=== PATIENT | male | born 1970 | race Caucasian/White ===

== ENCOUNTER 2021-04-04 11:15 | Inpatient (IN) | payer OTHER ==
[~2021-04-04] VITALS: Ht 175.3 cm; Wt 83.9 kg
[2021-04-04] MEDS ORDERED: VITAMIN D310 MCG/1 M PO (16:23)
[2021-04-04] MEDS ORDERED: VITAMIN C PO (16:23)
[2021-04-04] MEDS ORDERED: PROBIOTIC1 EAC2 PO (16:24)
[2021-04-11] MEDS ORDERED: VITAMIN C1000 MG (16:21)
[2021-04-15] MEDS ORDERED: HYOSCYAMINE0.125 M1 SL (10:42)
[2021-04-15] MEDS ORDERED: ULTRACET PO (10:42)
[2021-04-15] MEDS ORDERED: PANTOPRAZOLE SO40 MG PO (10:43)
[2021-04-15] MEDS ORDERED: DICLOFENAC SODI75 MG PO (10:43)
== END 2021-04-15 14:23 | disposition home or self-care (01) | DRG 334 ==
LOC: SURH 04-11 07:00 → O/R 04-11 07:37 → SURH 04-11 11:15
PROVIDERS: ADMIT Surgery; ATTEND Surgery
PROC: 0DBP4ZZ Excision of Rectum, Percutaneous Endoscopic Approach (ICD-10-PCS; principal; 2021-04-11 07:00)
PROC: 3E0F7SF Introduction of Other Gas into Respiratory Tract, Via Natural or Artificial Opening (ICD-10-PCS; principal; 2021-04-11 07:00)
DX: D12.2 Benign neoplasm of ascending colon (principal); D12.8 Benign neoplasm of rectum; E80.4 Gilbert syndrome; D12.3 Benign neoplasm of transverse colon

== ENCOUNTER 2021-04-09 08:52 | Day surgery (SDC) | payer OTHER ==
[~2021-04-09 08:52] MED LIST: PROBIOTIC1 EAC2 PO; VITAMIN C PO; VITAMIN D310 MCG/1 M PO
== END 2021-04-09 14:05 | disposition home or self-care (01) ==
LOC: AMB-ENDOS 08:52 → CIR.AMB 16:18
PROVIDERS: ATTEND Surgery
DX: D12.2 Benign neoplasm of ascending colon (principal); D12.3 Benign neoplasm of transverse colon; D12.4 Benign neoplasm of descending colon; D12.8 Benign neoplasm of rectum; K64.8 Other hemorrhoids; Z20.822 Contact with and (suspected) exposure to COVID-19